=== PATIENT | female | born 1985 | race Caucasian/White ===

== ENCOUNTER 2020-07-14 13:29 | Inpatient (IN) | payer OTHER ==
[2020-07-14 15:36] LABS: HEMOGLOBIN 12.2 gm/dl (12.3-15.3); RED BLOOD COUNT 4.44 M/UL (4.00-5.10); WHITE BLOOD COUNT 10.2 K/UL (4.5-11.0)
[2020-07-15 06:40] LABS: HEMOGLOBIN 11.6 gm/dl (12.3-15.3)
[2020-07-15] MEDS ORDERED: IBUPROFEN600 MG PO (12:12)
[2020-07-15] MEDS ORDERED: DOCUSATE SODIU100 MG PO (12:12)
== END 2020-07-15 20:57 | disposition home or self-care (01) | DRG 807 ==
LOC: OB 14:30
PROVIDERS: ADMIT Obstetrics & Gynecology
PROC: 10E0XZZ Delivery of Products of Conception, External Approach (ICD-10-PCS; principal; 2020-07-14)
PROC: 4A1HX4Z Monitoring of Products of Conception, Cardiac Electrical Activity, External Approach (ICD-10-PCS; 2020-07-14)
PROC: 10907ZC Drainage of Amniotic Fluid, Therapeutic from Products of Conception, Via Natural or Artificial Opening (ICD-10-PCS; 2020-07-14)
DX: O80 Encounter for full-term uncomplicated delivery (principal); Z37.0 Single live birth; Z3A.38 38 weeks gestation of pregnancy; Z20.822 Contact with and (suspected) exposure to COVID-19
CPT/HCPCS: 36415; 81001; 82800; 85014; 85018; 85025; 87635; 90707; 96372; J2590; J7120